=== PATIENT | female | born 1995 | race Two or more races ===

== ENCOUNTER 2019-05-29 13:00 | Emergency (ER) | payer MEDICAID ==
[~2019-05-29] VITALS: Ht 165.1 cm; Wt 68.0 kg
[2019-05-29 13:45] VITALS: BP 129/87
== END 2019-05-29 16:37 | disposition left against medical advice (07) ==
LOC: ER 13:22
DX: Z53.21 Procedure and treatment not carried out due to patient leaving prior to being seen by health care provider (principal)